=== PATIENT | male | born 1960 | race Caucasian/White ===

== ENCOUNTER → 2016-03-26 | Outpatient (CLI) | payer MEDICARE, MEDICAID | LOC: YCFC.O 16:43 | PROVIDERS: ATTEND Nurse Practitioner Family | DX: R50.9 Fever, unspecified (principal) ==

== ENCOUNTER 2016-07-26 21:25 | Emergency (ER) | payer MEDICARE, MEDICAID ==
[~2016-07-26 21:25] MED LIST: SODIUM CHLORIDE 0.9% 1000ML 1,000 ML IVS ONE
[2016-07-26] MEDS ORDERED: EPINEPHrine INJ 0.1 MG/ML 10 ML SYG IV ONE ×6 (21:27→21:47)
[2016-07-26] MEDS ORDERED: SODIUM BICARBONATE SYRINGE 50 MEQ/50 ML SYG IV ONE (21:32)
[2016-07-26] MEDS ORDERED: NALOXONE HCL INJ 0.4 MG/ML VIAL IV ONE ×2 (21:35→21:39)
[2016-07-26] MEDS ORDERED: DEXTROSE 50% 25 GM/50 ML SYG IV ONE (21:35)
[2016-07-26 22:14] VITALS: BP 0/0; TEMP 95
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
== END 2016-07-26 23:32 | disposition expired ==
LOC: ER 21:25
DX: I46.9 Cardiac arrest, cause unspecified (principal); J44.9 Chronic obstructive pulmonary disease, unspecified; I10 Essential (primary) hypertension; E11.9 Type 2 diabetes mellitus without complications; Z86.14 Personal history of Methicillin resistant Staphylococcus aureus infection; Z88.3 Allergy status to other anti-infective agents
CPT/HCPCS: 92950; J2310; J7030; J7799